=== PATIENT | female | born 1990 | race Caucasian/White ===

== ENCOUNTER 2017-05-09 02:45 | Day surgery (SDC) | payer OTHER ==
[~2017-05-09 02:45] MED LIST: BUSP5TAB3 PO; HYDR-4003 PO; LORA10CA PO; METO25TA6 PO; NORE1TAB22 PO; ONDA-53 PO; PANT40TA3 PO
== END 2017-05-09 23:59 | disposition home or self-care (01) ==
LOC: END 02:45
PROVIDERS: ATTEND Surgery
DX: K21.9 Gastro-esophageal reflux disease without esophagitis (principal); R14.2 Eructation; R12 Heartburn; R11.10 Vomiting, unspecified

== ENCOUNTER 2017-06-02 08:51 | Day surgery (SDC) | payer OTHER ==
[2017-06-02] VITALS (10 sets, daily range): BP systolic 119–147; BP diastolic 69–86; PULSE 86–115; RESP 14–17; O2SAT 93–99
[~2017-06-02] VITALS: Ht 162.6 cm; Wt 97.2 kg
[~2017-06-02 08:51] MED LIST changes: -BUSP5TAB3 PO; +CeFAZolin 2 Gm/50 mL D5W IV Premix IV ONE; +Lactated Ringer's 1,000 ML IV SCH; -METO25TA6 PO; +OXYC5TAB72 PO
[2017-06-02] MEDS ORDERED: Glycopyrrolate 0.2 MG/ML 1mL Inj ONE (08:52)
[2017-06-02] MEDS ORDERED: Propofol 10,000 mCg/mL 100 mL Inj ONE (08:52)
[2017-06-02] MEDS ORDERED: EPHEDrine/NS 5 mg/mL 5 mL Syringe ONE (08:52)
[2017-06-02] MEDS ORDERED: Neostigmine 1 mg/mL 10 mL Inj ONE (08:52)
[2017-06-02] MEDS ORDERED: Phenylephrine/NS-PF 100 mCg/mL 5 mL Syringe IVPUSH ONE (08:52)
[2017-06-02] MEDS ORDERED: Ondansetron 2 mg/mL 2 mL Inj ONE (08:52)
[2017-06-02] MEDS ORDERED: Succinylcholine Chloride 20 mg/mL 5 mL Inj ONE (08:52)
[2017-06-02] MEDS ORDERED: Rocuronium 10 mg/mL 5 mL Inj ONE (08:52)
[2017-06-02] MEDS ORDERED: Dexamethasone 4 mg/mL Inj ONE (08:52)
[2017-06-02] MEDS ORDERED: fentaNYL-PF 50 mCg/mL 2 mL Inj ONE (08:52)
[2017-06-02] MEDS: Lactated Ringer's 1,000 ML IV SCH ×2 (09:03→11:03)
[2017-06-02] MEDS ORDERED: METO25TA6 PO (09:16)
[2017-06-02] MEDS ORDERED: BUSP5TAB3 PO (09:16)
[2017-06-02] MEDS ORDERED: CeFAZolin Inj 2 gm / 50mL D5W IV ONE (09:22)
--- NOTE | 2017-06-02 10:46 | PCM.HPANE ---
Patient Data Surgeon Admitting Provider: Attending Provider:Bridgette Xavier MD Primary Care Physician:Seth Shaw MD Other Provider:Pee Keys Anesthesia Reason for Visit Hiatal Hernia, Gerd Ht/WT & BMI Height (Feet): 5 Height (Inches): 4 Weight (Kilograms): 95.481 Body Mass Index 35.00 Allergies Coded Allergies: azithromycin (Verified Adverse Reaction, Severe, N&V, 05/26/17) red dye (Verified Adverse Reaction, Severe, N&V, 05/26/17) Past Anesthesia History Anesthesia History: Denies:: Abnormal Airway, Anesthesia Reactions, Difficult Intubation, Fam Anesthesia Reaction, Fam Malignant Hypertherm, Malignant Hyperthermia Diabetes History Hx Diabetes?: No MRSA MRSA: No Medications Reported Medications Buspirone 5 Mg Tablet5 Mg PO BID #60 06/02/17 Metoprolol Tartrate 25 Mg Crpekb60.5 Mg PO BID #30 06/02/17 oxyCODONE 5 Mg Tablet5 Mg PO Q6H PRN For Pain Ref 0 05/26/[address] 40 Mg Tablet.dr40 Mg PO BID Ref 0 05/03/17 Ondansetron 4 Mg Tablet4 Mg PO DAILY PRN For Nausea 11/03/16 Loratadine (Claritin)10 Mg Fcyixlx39 Mg PO DAILY Ref 0 11/03/16 Norethindrone-Ethinyl Estrad (Nortrel)1 Each Tablet1 Each PO DAILY 11/03/16 Discontinued Reported Medications Hydrocodone-Acetaminophen 5-325 mg 1 Each Tablet1 Tablet PO Q4H PRN For Pain Ref 0 11/03/16 Metoprolol Tartrate 25 Mg Ggogoz23 Mg PO DAILY 30 Days Ref 0 05/05/17 Buspirone 5 Mg Tablet5 Mg PO DAILY Ref 0 05/05/17 Last Time Dose Received oxycodone - only takes during menstrual cycle Last took metoprolol last night (for HTN) History History of ENT Problems?: Yes HEENT History: Positive for:: Dysphagia (WORSENING) Sinus Problem (ENVIRONMENTAL ALLERGIES) Denies:: Abnormal Airway Difficult Intubation Hearing Problem Denture Type: None Teeth Condition: Within Normal Limits Other HEENT Pertinent History: S/P WISDOM TEETH EXTRACTIONS Hx of Heart Problems?: No Cardiovascular History: Denies:: Heart Murmur Hypertension Hx of Respiratory Problem?: No Respiratory History: Denies:: Use of C-PAP Machine Hx Neurologic Problems?: Yes Neurological History: Positive for:: Headaches (R/T MENSTRUAL CYCLE) Denies:: CVA Hx of GI Problems?: Yes Other GI Pertinent History: ATTEMPTING WEIGHT LOSS Hx of Problems?: Yes Genitourinary History: Positive for:: Urinary Tract Infection (RECENT PYELONEPHRITIS-TREATED) Female Hx: Denies:: Currently (S/P DX LAP FOR PELVIC PAIN) Skin History: Denies:: History Skin Disorders? Pressure Ulcers Hx Musculoskeletal Problems?: Yes Musculoskeletal History: Positive for:: Musculoskeletal Trauma (S/P LT HAND RPR (FB-GLASS) @ AGE 1 YRS) Denies:: Joint Replacement Hx of Psycho/Social Problems?: No Psycho Social History: Positive for:: Anxiety Denies:: Hx Depression Hx Surgeries?: Yes (DX LAP,LT HAND RPR,WISDOM TEETH EXTRACTIONS) Hx Any Other Health Problems?: Yes Other History: Denies:: Cancer Endocrine Disease Hospitalization Thyroid Disease Hx Diabetes: No Hx Alcohol Use: No (QUIT 2013) Smoking Status: Never Smoker Have You Smoked inLast 12 mo: No Stop/Bang S-Snoring: Do You Snore Loudly: No T-Tired: feel tired, fatigued: No O-Obsered: Observed not breath: No P-Blood Pressure: treated: No B- Body Mass Index > 35 kg/m2: Yes A- Age over 50: No N- Neck Large Circumference: No G- Gender Male: No AMADEO Total Score: 1 Risk Assessment Category Category 1A: Patient has history of documented sleep apnea, and HAS NOT received any narcotic, sedative or anesthesia administration during this stay. Category 1B: Patient has history of documented sleep apnea, and HAS received any narcotic , sedative or anesthesia administration during this stay Category 2: Patient has SUSPECTED Obstructive Sleep Apnea, and HAS received any narcotic , sedative or anesthesia administration during this stay. Category 3: Patient has SUSPECTED Obstructive Sleep Apnea and HAS NOT received narcotic, sedative or anesthesia administration during this stay. Category 4: Outpatient in Procedural Areas with known sleep apnea or who screen positive for High Risk via the STOP/BANG questionnaire. Exam Exam General Appearance: Alert, Oriented X3 HEENT/AIRWAY: MP 2, Neck Movement (FROM) Lungs: Clear to Auscultation, Clear to Percussion Heart: Exam Unremarkable, Regular Rate/Rhythm Meds/Labs/Diagnostics Admission Meds Current Medications Lactated Ringer's (Lr) 1,000 ml @ 120 mls/hr Q8H20M IV Last administered on 09:03; Start 06/02/17 at 05:00; Stop 06/02/17 at 13:19; Status Cancel Plan Impression Patient chart reviewed, patient interviewed and anesthestic plan with risks, benefits, and alternatives discussed, and informed consent obtained. ASA Physical Status: ASA3 Severe Disease (chronic opiates; morbid obesity) Anesthetic Plan: GA Bene/Risks/Altern/Consents: Yes HP Complete Prior to Induction: Yes Other Recent cough; suspected sinus drainage. No wheezing or SOB. Discussed slight increased risk of pulm complications and pt would like to proceed Erick Cornell MD Jun 02, 2017 09:15
[2017-06-02] MEDS ORDERED: Bupivacaine-MPF 0.5% W/EPI 30 mL Inj INFILTRATE ONE (11:00)
[2017-06-02] MEDS: Dextrose 5% Lactated Ringer's 1,000 ML IV SCH (13:55)
[2017-06-02] MEDS ORDERED: oxyCODONE 1 mg/mL 5 mL Liquid PO PRN (13:55)
[2017-06-02] MEDS ORDERED: Acetaminophen 32 mg/mL 5 mL Liquid PO SCH (13:55)
[2017-06-02] MEDS ORDERED: ProchlorPERazine 5 mg/mL 2 mL Inj IVPUSH PRN (13:55)
[2017-06-02] MEDS ORDERED: Lactated Ringer's 1,000 ML IV SCH (13:57)
[2017-06-02] MEDS ORDERED: Lactated Ringer's 500 ML IV PRN (13:57)
[2017-06-02] MEDS ORDERED: fentaNYL-PF 50 mCg/mL 2 mL Inj IVPUSH PRN (14:00)
[2017-06-02] MEDS ORDERED: Phenylephrine 10,000 mCg/mL Inj IVPUSH PRN (14:00)
[2017-06-02] MEDS ORDERED: Labetalol 5 mg/mL 4 mL Inj IV PRN (14:00)
[2017-06-02] MEDS ORDERED: Ondansetron 2 mg/mL 2 mL Inj IVPUSH PRN (14:00)
[2017-06-02] MEDS ORDERED: MetoCLOpramide 5 mg/mL 2 mL Inj IVPUSH PRN (14:00)
[2017-06-02] MEDS ORDERED: EPHEDrine Sulfate 50 mg/mL Inj IVPUSH PRN (14:00)
[2017-06-02] MEDS ORDERED: Atropine 0.4 mg/mL Inj IVPUSH PRN (14:00)
[2017-06-02] MEDS ORDERED: HYDROmorphone 1 mg/mL Inj IVPUSH PRN (14:00)
--- NOTE | 2017-06-02 14:04 | PCM.SURGOP ---
Surgical Operative Report Date of Service: Jun 02, 2017 Pre Operative Diagnosis Gastroesophageal reflux disease Post Operative Diagnosis Gastric esophageal reflux disease Procedure: Laparoscopic hiatal hernia repair with Toupet fundoplication Surgeon and Harbor Department Manager: Surgeon: Bridgette Xavier MD Assistants: Wero Sandhu MD R3; Donny Ortega PA-C dietary assistant was required for retraction and for driving the camera. Indication for Procedure This is a 27-year-old woman with a history of severe gastroesophageal reflux disease refractory to medical and conservative management. Her worst symptoms were regurgitation and acid brash. She also has a diagnosis of eosinophilic esophagitis. She underwent a full workup which revealed a DeMeester score of 103, LA grade C esophagitis with a small hiatal hernia, and normal esophageal peristalsis with a hypotensive lower esophageal sphincter. Findings: 1. Small hiatal hernia with moderate inflammation of the gastroesophageal junction. 2. 270 posterior fundoplication. Procedure Details The patient was brought to the operating room and placed in supine position. General endotracheal anesthesia was smoothly induced. A warming blanket and SCDs were placed. The patient was repositioned into low lithotomy with the left arm tucked. Antibiotics were infused. The operative field was prepped and draped in sterile fashion. A bougie was advanced to 20 cm. A pause was performed to confirm the correct patient, procedure, and site. The abdomen was accessed using a Veress needle in the left upper quadrant after controlling the fascia and was insufflated. An 11 mm Optiview port was inserted and intraperitoneal insufflation began. A 5 mm port was then placed in the mid abdomen just to the left of midline. The 5 mm port was placed in the mid abdomen laterally on the left. A 5 mm flexible liver retractor was placed through a 5 mm port in the right lateral abdomen. A final 5mm trocar was placed in the right upper quadrant. Inspection revealed a small hiatal hernia, consistent with preoperative evaluation. The stomach was identified and the phrenogastric ligament was taken down sharply. The short gastrics were then taken down using LigaSure device. Dissection proceeded at the hiatus starting on the left. The mediastinum was entered on the left. Both vagi were identified and preserved. The gastrohepatic ligament was then divided up to the right josué and the right sided dissection was completed with care taken to preserve the entire josué. Once the esophagus was dissected circumferentially, the hiatal hernia was reduced and a Viet drain was then placed around the esophagus at the gastroesophageal junction for retraction to facilitate a more proximal esophageal dissection. This proceeded proximally until there was 5 cm of intra- abdominal esophagus. 3 interrupted 2-0 silk stitches were placed in the posterior crura to reapproximate them without tension. Attention was turned to the to Toupet fundoplication. A Toupet was chosen due to data demonstrating that it is equivalent for postoperative reflux but improves postoperative dysphagia and gas bloat, and the risk of bougie placement may be avoided. A marking stitch was placed on the posterior fundus, 3 cm distal to the gastroesophageal junction and 2 cm posterior to the greater curvature. This was brought around posteriorly to align the geometry of the fundoplication. The first stitch was placed in the fundus just proximal to the marking stitch, to the esophagus at and 11 o'clock position, and to the right josué at the 11 o'clock position. The second stitch was placed from the posterior aspect of the right fundoplication to the bilateral crura posteriorly. The Viet drain was removed. Two additional stitches were then placed from the right side of the fundoplication to an 11 o'clock position on the esophagus. Care was taken to avoid inclusion of the anterior vagus in the stitches. The marking stitch was removed. Attention was then turned to the left side of the wrap. An appropriate position on the fundus was chosen to create symmetrical geometry of the fundoplication. The first stitch on the left was placed from the wrap to the esophagus to the josué, again with care taken to avoid inclusion of the anterior vagus in the stitch. Two additional sutures were then placed from the wrap to the esophagus, each 1 cm distal to the previous one. A final coronal stitch was placed from the left posterior fundoplication to the posterior aspect of the left josué. Once the procedure was complete, the ports were removed under direct vision and the abdomen was desufflated. 0.5% Marcaine with epinephrine was infused at all port sites. Skin was closed with 4-0 Monocryl. Sterile dressings were placed. All sponge, instrument, and needle counts were correct at the end of the procedure. The patient was awakened from general anesthesia and taken to the postoperative care unit in good condition. Complications There were no periprocedural complications identified. Surgical Specimen Removed: No Specimen sent to Pathology: No Anesthetic Plan: GA Grafts, Implants: None Output, Estimated Blood Loss: 2 (ml) Blood Administration during bone: No Bridgette Xavier MD Jun 02, 2017 14:04
[2017-06-02 14:12] LABS: Mean Corpuscular Hemoglobin 26.9 pg (27.0-35.0); Mean Corpuscular Volume 82.2 fL (81-100)
--- NOTE | 2017-06-02 14:55 | NUR ---
PostOp Post op woth 4 lap sites on left upper ABD and 1 lap on right upper abd lateral. All with steristrips and bandage C/D/I. A&Ox4, Denies CP, SOB, Nausea at this time. Oxygen plan to wean on 2L NC at this time. Motehr at bedside. Pain 7/10 right side.
[2017-06-02] MEDS ORDERED: Acetaminophen 32.5 mg/mL 20 mL Liquid PO SCH (15:45)
[2017-06-02] MEDS: Ondansetron 2 mg/mL 2 mL Inj IVPUSH PRN (17:21)
[2017-06-02] MEDS: Heparin 5,000 Unit/mL Inj SUBQ SCH (17:55)
[2017-06-02] MEDS: MetoCLOpramide 5 mg/mL 2 mL Inj IVPUSH PRN (19:14)
--- NOTE | 2017-06-02 19:38 | NUR ---
Nausea / Allergies Pt has been c/o nausea at times. Small amt of vomit but not much. Zofran didn't help much. Reglan tried this time. Pt has allergy to Red Dye 40. Medications changes to address this concern. Pt did take the Liquid Oxy and APAP which appeared to have red dye in them even though she acknowledged this. Pt also requested Cranberry juice which this RN mentions most likely has red dye in it as well. Pt stated no it is fine. Cranberry juice has now been taken away. Pt states that her symptoms of this allergy include N/V. Care continues
[2017-06-02] MEDS: BusPIRone 15 mg Dividose Tablet PO SCH (20:28)
[2017-06-03 00:06] VITALS: BP 119/76; PULSE 88; RESP 16; O2SAT 95
[2017-06-03] MEDS: Heparin 5,000 Unit/mL Inj SUBQ SCH ×2 (00:35→08:49)
[2017-06-03] MEDS: Dextrose 5% Lactated Ringer's 1,000 ML IV SCH ×2 (02:25→14:55)
--- NOTE | 2017-06-03 03:00 | NUR ---
Nausea/Pain Pt had 0 episodes of NV all night. Pt rec'd no cranberry juice or meds with red dye. Pt doing well with PO oxycodone and tylenol. Rates pain always 6-7/10. She c/o pain to left shoulder r/t gas/air, understands it will resolve faster if she gets up to walk. Pt declined. Only would get up to BR all shift. Kpad applied with + effects. Care continues
[2017-06-03 05:33] VITALS: BP 121/79; PULSE 96; RESP 16; O2SAT 98
[2017-06-03 05:52] LABS: Mean Corpuscular Hemoglobin 26.9 pg (27.0-35.0); Mean Corpuscular Volume 82.1 fL (81-100)
--- NOTE | 2017-06-03 07:47 | PCM.PNSURG ---
Subjective Visit Information: Reason for Visit Hiatal Hernia, Gerd Surgery/Surgery Date Post-Op Day # Date of Admission: Hospital Day # Subjective: Nausea with some burping last night. Although nursing notes report vomiting, she says it was more similar to burping with clear fluid regurgitation. Otherwise tolerated PO clear liquids. Reglan worked better than zofran. Able to urinate without gagnon catheter. Tachycardia overnight, resolved this morning. Objective Vital Sign- Last 8 Hours Date Time Temp Pulse Resp B/P Pulse Ox O2 Delivery O2 Flow Rate FiO2 06/03/17 05:33 36.5 96 16 121/79 98 Room Air 06/03/17 00:06 36.8 88 16 119/76 95 Room Air Intake and Output- Last 8 Hour 06/03/17 Cumulative From/Thru 07:00 05/26/17 15:10 - 06/03/17 05:32 Intake Total 1200 ml 4550 ml Output Total 1450 ml 1654 ml Balance -250 ml 2896 ml Intake Oral 1200 ml 3700 ml IV Total 850 ml Output Urine Total 1450 ml 1650 ml Estimated Blood Loss 4 ml # Bowel Movements 0 0 General: Alert, Oriented X3, Cooperative, No Acute Distress Result Diagram: 06/03/17 0447 06/03/17 0447 Assessment & Plan Impression 27yof s/p lap Toupet fundoplication. Problems: Plan Full liquid diet Crushed/liquid meds Continue antiemetics Nutrition consult Home meds crushed Ambulation in the halls Discharge at midday if the above measures are met. Bridgette Xavier MD Jun 03, 2017 07:47
[2017-06-03] MEDS ORDERED: NORTREL PO SCH (08:30)
[2017-06-03] MEDS: BusPIRone 15 mg Dividose Tablet PO SCH (08:48)
[2017-06-03] MEDS: MetoCLOpramide 5 mg/mL 2 mL Inj IVPUSH PRN (09:55)
--- NOTE | 2017-06-03 10:38 | NUR ---
RD Diet Ed completed. Diet education regarding pureed/liquid diet completed. Please see RD: Dietary Teaching Record under Care Activity for more information on ed.
[2017-06-03 12:07] VITALS: BP 110/77; PULSE 88; RESP 18; O2SAT 99
[2017-06-03] MEDS: Ondansetron 2 mg/mL 2 mL Inj IVPUSH PRN (12:30)
--- NOTE | 2017-06-03 13:36 | PCM.PNSURG ---
Subjective Date of Service: Jun 03, 2017 Date of Service: Jun 03, 2017 Visit Information: Reason for Visit Hiatal Hernia, Gerd Surgery/Surgery Date 06/02/17 Post-Op Day # 1 Date of Admission: 06/02/17 Hospital Day #2 Subjective: The patient feels well today and is anxious to leave the hospital. She states she has minimal upper abdominal pain, no nausea and has not vomited. She has burped a few times this morning. She is voiding appropriately but has not had a bowel movement or flatus yet. Postop General: No Complaints, No Shortness of Breath, No Chest Pain Gastrointestinal: Good Appetite, No N/V Pain Management: PO Postop Activity: Ambulating Independently Objective Objective Surgical sites are healing appropriately with bandages covering Steri-Strips. No erythema or drainage was observed at the sites. The patient did have tachycardia earlier this morning however this is resolved and she has a normal rate and rhythm this point. Vital Sign- Last 8 Hours Date Time Temp Pulse Resp B/P Pulse Ox O2 Delivery O2 Flow Rate FiO2 06/03/17 12:07 36.8 88 18 110/77 99 Room Air 06/03/17 05:33 36.5 96 16 121/79 98 Room Air Intake and Output- Last 8 Hour 06/03/17 Cumulative From/Thru 07:00 05/26/17 15:10 - 06/03/17 05:32 Intake Total 1200 ml 4550 ml Output Total 1450 ml 1654 ml Balance -250 ml 2896 ml Intake Oral 1200 ml 3700 ml IV Total 850 ml Output Urine Total 1450 ml 1650 ml Estimated Blood Loss 4 ml # Bowel Movements 0 0 General: Alert, Cooperative, No Acute Distress Lungs: Clear to Auscultation Heart: Regular Rate/Rhythm Abdomen: Soft, Appropriately tender (in the upper quadrants), Non-distended Neuro: Cranial Nerves 2-12 nl, Normal Speech Catheters: None Result Diagram: 06/03/177 06/03/17446 Assessment & Plan Impression Postoperative day one Tupet fundoplication -Surgical sites healing appropriately -Patient tolerated pured Diet -Pain and nausea are well controlled -Patient ambulating without help -Patient will discharge home today Problems: (1) GERD (gastroesophageal reflux disease) Status: Acute ICD Code: K21.9 Pain Management: Adequate pain control with by mouth medications Resuscitation Status: CPR: Attempt Resuscitation Elena Iniguez DO Jun 03, 2017 13:36
--- NOTE | 2017-06-03 13:50 | PCM.DISURG ---
Surgical Discharge Instruction Date of Service Jun 03, 2017 Dates of Hospitalization Date of Hospital Admission 06/02/2017 Providers Admitting Physician: Primary Care Physician: Seth Shaw MD Attending Physician: Bridgette Xavier MD Discharge Diagnosis Discharge Diagnosis Gastric esophageal reflux disease Post Operative diagnosis Gastric esophageal reflux disease Diet Discharge Diet: Other (pured foods) Activity Discharge Activity-General: No restrictions, Try not to overdue, Activity as pain allows, No driving while taking narcotic Dressing and Incisional Care Dressing Care: Keep dressing clean, dry & intact Hygiene: May shower (in 24 hours) Additional Instructions Discharge Instructions Call the clinic if pain is worsening, bleeding not resolved with 5 minutes of compression to the site, drainage of pus, or increased swelling at the incision sites. As discussed, you should have a low threshold to call the clinic. You should eat a pured diet for the next 2 weeks until you have your office visit with Dr. Xavier You may shower in 24 hours and leave the Steri-Strips on the incision sites until they fall off. You may be as active as your pain allows so long as you do not overdo it. Your goal is to avoid nausea and continue taking the Reglan orally as prescribed. As discussed, it is crucial to avoid vomiting. Take scheduled Tylenol every 6 hours as prescribed for the next week and oxycodone every 4 hours scheduled to start for the first few days then as needed. Follow-up with Dr. Xavier in 2 weeks. Follow Up Plan Follow Up Plan Follow-up with Dr. Xavier in her Gen. surgery clinic Call your provider for: Fever, Chills, Shortness of breath, Increasing abdominal pain, Nausea, Vomiting, Wound redness, Increasing wound pain, Warmth to touch, Discharge @ incision, pus discharge Elena Iniguez DO Jun 03, 2017 13:50
--- NOTE | 2017-06-03 13:58 | PCM.DC.SUR ---
Discharge Summary Date of Service: Jun 03, 2017 Date of Hospital Admission: 06/02/2017 Date of Discharge: 06/03/2017 Diagnosis at Time of Discharge GERD Problems: (1) GERD (gastroesophageal reflux disease) Status: Acute ICD Code: K21.9 Operation Laparoscopic Tupet fundoplication Brief History and Physical: 27-year-old woman with a history of severe gastroesophageal reflux disease refractory to medical and conservative management and eosinophilic esophagitis. Her worst symptoms were regurgitation and acid brash. She also has a diagnosis of eosinophilic esophagitis. She underwent a full workup which revealed a DeMeester score of 103, LA grade C esophagitis with a small hiatal hernia, and normal esophageal peristalsis with a hypotensive lower esophageal sphincter. Esophageal manometry: Hypotensive lower esophageal sphincter, hiatus hernia, normal peristalsis. 48 hour pH testing with Bland: Total time pH less than 4 was 29.1%. DeMeester score 103.9. Upright exposure 22%. Supine exposure 36%. Longest reflux 30 minutes. Symptom correlation was good for bulge, heartburn, and regurgitation. 391 total episodes of reflux. Upper GI fluoroscopy 04/29/2017: Small reducible hiatal hernia with severe spontaneous gastro-esophageal reflux Upper endoscopy 05/05/2017: LA grade C esophagitis from 25-31 cm. Diaphragmatic hiatus at 36 cm with scleral corner junction at 31 cm consistent with hiatal hernia. Bland probe was placed. Hospital Course: The patient had uneventful hospital course. She underwent the above-mentioned surgery without complication. Her pain is currently well controlled. She has advanced her diet. At the time of discharge she has had no vomiting and is not nauseous. Dr Xavier has evaluated the patient and has authorized discharge in stable condition. Disposition: Home Follow-up Plan: Follow-up with Dr. Xavier in 2 weeks. Buspirone (Buspirone) 5 Mg Tablet 5 MG PO BID (Reported) Loratadine (Claritin) 10 Mg Capsule 10 MG PO DAILY (Reported) Metoprolol Tartrate (Metoprolol Tartrate) 25 Mg Tablet 12.5 MG PO BID (Reported ) Norethindrone-Ethinyl Estrad (Nortrel) 1 Each Tablet 1 EACH PO DAILY (Reported) Ondansetron (Ondansetron) 4 Mg Tablet 4 MG PO DAILY PRN PRN For Nausea (Reported ) Pantoprazole (Pantoprazole DR) 40 Mg Tablet.dr 40 MG PO BID (Reported) oxyCODONE (oxyCODONE) 5 Mg Tablet 5 MG PO Q6H PRN PRN For Pain (Reported) Elena Iniguez DO Jun 03, 2017 13:58
[2017-06-03] MEDS ORDERED: OXYC5TAB72 PO (14:40)
[2017-06-03] MEDS ORDERED: ACET325T51 PO (14:40)
[2017-06-03] MEDS ORDERED: METO5SOL PO (14:40)
--- NOTE | 2017-06-03 16:01 | NUR ---
Discharge Orders for discharge were received. The patient was made aware of the plan to discharge and was agreeable to go. The patient was given information and teaching on her diagnosis and treatment, signs and symptoms to be aware of, diet instructions, follow up instructions, scripts for new medications and teaching on these medications as well as surgical site dressing care instructions. The patient signified understanding of this this information, verified by the teach back method. The patient's asymptomatic IV was then removed intact. The patient then ambulated into a wheelchair, which took her to the main entrance where she ambulated into an awaiting private family vehicle. At the time of discharge the patient was alert and oriented, with no complain of nausea, out of control, headache or other difficulty, surgical site dressings clean dry and intact.
--- NOTE | 2017-06-04 09:33 | PCM.ANEP1 ---
Post Anesthesia PACU Phase 1 Assessment Level of Alertness: Awake, talking RIDER's with Equal Strength: Yes Pain: No Pain Scale Score: 6 Nausea or Vomiting: No CV Function & Hydration Stable: Yes Airway Device: Oxygen Delivery: Simple Mask Lungs: Clear to Auscultation PACU Phase 2 Assessment Complications: No Follow up Care: No Patient Instructions Provided: N/A Erick Cornell MD Jun 04, 2017 09:33
== END 2017-06-03 15:27 | disposition home or self-care (01) ==
LOC: SAS 08:51 → OSC 14:38 → SAS 06-03 15:27
PROVIDERS: ATTEND Surgery
DX: K44.9 Diaphragmatic hernia without obstruction or gangrene (principal); K21.9 Gastro-esophageal reflux disease without esophagitis; K20.0 Eosinophilic esophagitis; G89.18 Other acute postprocedural pain
CPT/HCPCS: 36415; 43281; 80048; 85027; 94640; 96374; 96375; J0330; J0690; J1100; J1644; J1885; J2370; J2405; J2710; J2765; J3010; J7120